=== PATIENT | male | born 2000 | race Caucasian/White ===

== ENCOUNTER 2022-11-24 00:41 | Emergency (ER) | payer BC, OTHER ==
[~2022-11-24] VITALS: Ht 185.4 cm; Wt 70.3 kg
[2022-11-24] MEDS ORDERED: LIDOCAINE 1%-EPI 1:100,000 20 ML VIAL ONE (01:25)
[2022-11-24] MEDS ORDERED: TDAP [DIPH/PERTUSSIS/TET] 0.5 ML VIAL IM ONE ×2 (01:26→01:30)
[2022-11-24] MEDS ORDERED: LIDOCAINE 1%-EPI 1:100,000 50 ML VIAL IJ ONE (01:30)
[2022-11-24] MEDS ORDERED: LIDOCAINE HCL/MPF 1% 30 ML VIAL IJ ONE (02:13)
[2022-11-24 03:20] VITALS: BP 135/77; TEMP 98.2; O2SAT 97
== END 2022-11-24 03:20 | disposition home or self-care (01) ==
LOC: EDUNIT# 00:41 → ER 00:50
DX: S60.131A Contusion of right middle finger with damage to nail, initial encounter (principal); W22.8XXA Striking against or struck by other objects, initial encounter; Y93.89 Activity, other specified; Y92.89 Other specified places as the place of occurrence of the external cause; Y99.8 Other external cause status
CPT/HCPCS: 99284; 90471; 11740; 90715; 73130; J3490 ×3